=== PATIENT | female | born 1995 | race Two or more races ===

== ENCOUNTER 2023-07-07 12:23 | Emergency (ER) | payer MEDICAID, SELFPAY ==
--- NOTE | ~2023-07-07 | XR_ITS ---
EXAMINATION: XR KNEE, RIGHT CLINICAL INFORMATION: Pain, felt pop COMPARISON: None available. TECHNIQUE: 5 views of the right knee. FINDINGS: Mild bony density adjacent to the metaphysis of the distal femoral condyle medially. This appears rounded and may be dystrophic. Otherwise no suspicious bony finding. No effusion is seen. Joint spaces are well-preserved. No fracture or dislocation. XR/XR knee RT 3V IMPRESSION: No convincing evidence for an acute finding. Small bony density medially appears rounded and may be dystrophic calcification associated with previous soft tissue injury.
[2023-07-07 12:48] VITALS: BP 136/76; PULSE 84; RESP 18; TEMP 36.6; O2SAT 98; BMI 38.4
--- NOTE | 2023-07-07 12:48 | ED_ITS ---
HPI - General Adult General Chief complaint: Extremity Injury, Lower Stated complaint: r knee pain Related Data Allergies Allergy/AdvReac Type Severity Reaction Status Date / Time No Known Allergies Allergy Verified 07/07/23 12:47 Physical Exam ED Vital Signs: Vital Signs - 24 hr 07/07/23 12:48 Temperature 98 F Pulse Rate 84 Respiratory Rate 18 Blood Pressure 136/76 Pulse Oximetry 98 Oxygen Delivery Method Room Air BMI result Body Mass Index 38.4 Course Course Course Narrative: This is a rapid medical exam: Additional HPI, ROS, PE not included below will be deferred to primary provider. Patient is a 27-year-old female presenting to the ED with complaint of right knee pain for 2 days. Works at [employer], was emptying a san and when she stood up felt a pop and pain. Symptoms worsened the following day (yesterday) and states was unable to lift or bend knee. Arrives in a borrowed knee brace. Complains of patellar pain and well as posterior knee pain. Took 800mg ibuprofen last night with little relief, states woke repeatedly due to the pain. Plan: X-ray Discharge Plan Discharge Clinical Impression: Knee pain, right Qualifiers: Chronicity: acute Qualified Code(s): M25.561 - Pain in right knee Patient Disposition: Left W/O Completing Treatment
--- NOTE | 2023-07-07 15:27 | PC.NURSE ---
Pt approached triage asking for further information regarding d/c status x3. contact made to [facility] provider regarding plan of care. Pt increasingly verbally aggressive when told that I could not given out test results. You are no help what so ever . Pt educated that I would Reach out to her regarding her status as soon as I could Upon 3rd time approaching Triage: Pt educated to process regarding need for further workup and thorough lower extremity limb exam. Pt stated to me you are utterly no help and I dont' like your attitude. The marshall before you said I could be discharged from here. Screw you, I'm going to Leave now. I want my d/c paperwork . Pt educated that no d/c paperwork or note would be provided because she did not complete treatment. I'm going to tell Karen on you . Pt ambulated to exit. Note written in conjunction with [facility] provider. stock broker supervisor aware.
== END 2023-07-07 16:22 | disposition left against medical advice (07) ==
LOC: HO.ED 16:53
PROVIDERS: Emergency Provider Emergency Medicine
DX: M25.561 Pain in right knee (principal)
CPT/HCPCS: 73562; 99281; 99283

== ENCOUNTER 2023-07-07 17:21 | Emergency (ER) | payer MEDICAID, SELFPAY ==
[2023-07-07 18:07] VITALS: BP 112/68; PULSE 78; RESP 14; TEMP 36.9; O2SAT 98; BMI 36.4
--- NOTE | 2023-07-07 18:07 | ED_ITS ---
HPI - General Adult General Chief complaint: Extremity Injury, Lower Stated complaint: right knee pain Related Data Previous Rx's Medication Instructions Recorded ibuprofen 600 mg tablet 600 mg PO Q6H PRN pain #20 tabs 07/08/23 Allergies Allergy/AdvReac Type Severity Reaction Status Date / Time No Known Allergies Allergy Verified 07/07/23 12:47 [facility] Social History Social History Substance Use Type: Marijuana Physical Exam ED Vital Signs: BMI result Body Mass Index 36.4 Course Course Course Narrative: This is a rapid medical exam: Additional HPI, ROS, PE not included below will be deferred to primary provider. Patient is a 27-year-old female presenting to the emergency department with complaint of right knee pain, rates 9/10. States was working at her other job at [employer], was kneeling to empty a asn, and felt a pop when she stood up. Next day developed severe pain. Reports pain with weigth bearing, states is unable to flex knee. Arrives in a knee immobilizer borrowed from family member. Took ibuprofen with minimal relief. Patient checked in to the ED earlier, and had x-ray done in the waiting room which shows no acute findings. Unable to complete full ligament exam in triage due to patient's pain level. Discharge Plan Discharge Clinical Impression: Acute pain of right knee Patient Disposition: Elopement Prescriptions: No Action ibuprofen 600 mg tablet 600 mg PO Q6H PRN (Reason: pain) Qty: 20 0RF Discharge Date/Time: 07/07/23 22:24
== END 2023-07-07 22:24 | disposition left against medical advice (07) ==
PROVIDERS: Emergency Provider Emergency Medicine
DX: M25.561 Pain in right knee (principal)
CPT/HCPCS: 99281

== ENCOUNTER 2023-07-08 07:15 | Emergency (ER) | payer MEDICAID, SELFPAY ==
[2023-07-08 07:21] VITALS: BP 118/75; PULSE 90; RESP 18; TEMP 36.7; O2SAT 99; BMI 38.4
--- NOTE | 2023-07-08 08:58 | ED_ITS ---
HPI - General Adult General Chief complaint: Extremity Problem Stated complaint: R Knee Pain No Injury Time Seen by Provider: 07/08/23 08:53 Source: patient Mode of arrival: ambulatory Limitations: no limitations History of Present Illness HPI narrative: Patient is a 27-year-old female presenting to the emergency department with complaint of right knee pain. 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 States that 3 days ago she was emptying a [employer] at [employer] and with kneeling, when she stood she felt a popping sensation. States did not have pain immediately but pain developed the following day. Reports pain became so severe she is unable to bear weight on her right leg. States that she borrowed a knee brace from a cousin. Used 800 mg ibuprofen with little relief. Denies any numbness or tingling to leg. Denies prior injuries to affected knee. complaint: Right knee pain Onset (ago): day(s) Location: right and lower extremity Radiation: non-radiation Severity: severe Quality: aching Pain Consistency: constant Relieving factors: rest Exacerbating factors: movement Associated symptoms: denies other symptoms Treatments prior to arrival: NSAID Related Data Previous Rx's Medication Instructions Recorded ibuprofen 600 mg tablet 600 mg PO Q6H PRN pain #20 tabs 07/08/23 Allergies Allergy/AdvReac Type Severity Reaction Status Date / Time No Known Allergies Allergy Verified 07/07/23 12:47 Review of Systems Review of Systems: As per HPI. Yes all other systems are reviewed and are negative Constitutional: Constitutional: Reports as per HPI PMF Social History Social History Smoked in Last 30 Days: No Use of substances other than those prescribed or required for medical reasons: Yes Substance Use Type: Marijuana Advance Directives: No Advance Directives Information Provided: Yes Physical Exam ED Vital Signs: Vital Signs - 24 hr 07/08/23 07:21 07/08/23 09:40 Temperature 98.1 F Pulse Rate 90 84 Respiratory Rate 18 18 Blood Pressure 118/75 129/80 Pulse Oximetry 99 98 Oxygen Delivery Method Room Air Room Air BMI result Body Mass Index 38.4 Vital signs have been reviewed and appear to be correct. Blood pressure normal. Heart rate normal. Respiratory rate normal. Temperature normal. Oxygen saturation normal. Const General: cooperative, healthy appearing and no acute distress Orientation/consciousness: oriented to person, oriented to place, oriented to time and patient oriented x3 Limitations: no limitations HENMT Head: Yes normocephalic and Yes atraumatic Ears: external ears normal General nose exam: Normal external nose present Face and sinus: Yes face symmetric Mouth: oropharynx normal and moist mucous membranes Throat: Yes uvula midline Eyes Pupils: Equal, round and reactive pupils present Neck Neck: Yes normal visual inspection and Yes supple Resp Effort & Inspection: normal respiratory effort and able to speak in complete sentences Auscultation: clear to auscultation bilaterally Cardio Rate: regular rate Rhythm: regular rhythm Heart sounds: S1 normal heart sound present and S2 normal heart sound present GI Palpation (GI): Soft to palpation and nontender Auscultation: normoactive bowel sounds General: Yes no CVA tenderness Back/Spine/Pelvis Back: no CVA tenderness Skin General skin exam: elasticity normal and turgor normal Neuro General: oriented to person, oriented to place, oriented to time, patient oriented x3, moves all extremities, no focal motor deficits and CN's II-XI intact bilaterally Cranial nerves: Yes Equal, round and reactive pupils present Cognition (Neuro): normal cognition Extrem General: Yes full ROM, Yes normal exam except as noted, Yes no pedal edema and Yes no calf tenderness Right lower extremity: knee Details: normal to inspection, tenderness Location: of the popliteal fossa and of the medial joint line, normal ROM and knee ligament exam abnormal Details: valgus stress test normal Details: both pain and laxity noted; no ecchymosis and no crepitus and foot Details: vascular exam Details: dorsalis pedis pulse present, posterior tibial pulse present and normal capillary refill Psych Mental Status: mental status grossly normal Affect: normal affect Thought process: Normal thought process present Medical Decision Making Medical Decision Making MDM Narrative: Patient is a 27-year-old female presenting to the emergency department with complaint of right knee pain. On exam patient is awake, A+Ox3, VS WNL, afebrile, normal neurological exam without focal deficits, no swelling or ecchymosis noted to right knee, tenderness noted to medial joint line and popliteal fossa, laxity and pain noted on valgus stress test, neurovascularly intact distally. Given reported symptoms and physical exam findings, initial differential includes strain, sprain, fracture, ligamentous injury. X-ray obtained while patient in waiting room yesterday notable for no acute findings. My interpretation is in agreement with the radiologist's interpretation. Will discharge patient home in in knee immobilizer with crutches and crutch teaching and advised to not bear weight on right leg until evaluated by orthopedics. Instructed patient to keep leg elevated while at rest, apply ice intermittently throughout the day, medicate with Tylenol and ibuprofen. Will refer patient to Orthopedics for further evaluation and treatment. Return precautions discussed at bedside. Patient verbalized understanding of and agreement with plan. Differential Diagnosis Differential Diagnoses: The differential diagnosis associated with the presentation includes As per MDM. Independent Interpretation I performed an independent interpretation of an: Plain X-Ray Interpretation: No acute fracture Radiology Impression Discussion of test interpretation with radiology: I have reviewed the radiologist's reading. Radiologist Impression: XR/XR knee RT 3V IMPRESSION: No convincing evidence for an acute finding. Small bony density medially appears rounded and may be dystrophic calcification associated with previous soft tissue injury. External Record Review External record reviewed: Inpatient record, Office record and Outpatient record Prescription Management I considered prescription management with: Pain Medication Discharge Plan Discharge Clinical Impression: Acute pain of right knee Injury of knee, ligament Qualifiers: Encounter type: initial encounter Laterality: right Qualified Code(s): S89.91XA - Unspecified injury of right lower leg, initial encounter Patient Disposition: Home, Self-Care Instructions: Crutch Instructions (ED), Knee Pain (ED), R.I.C.E. Treatment (ED), Knee Immobilizer (ED) Additional Instructions: You have been evaluated in the emergency department today for knee pain. Your x-ray did not find evidence of medical conditions requiring emergent intervention at this time, however there is concern for a ligament injury. We have provided a knee immobilizer and crutches for you to use into the follow-up with orthopedics. Do not bear weight on your right leg until evaluated by orthopedics. Please rest, ice, and elevate your leg. We recommend you take 600mg ibuprofen every 6 hours or 650mg Tylenol every 6 hours as needed for pain. If needed you can alternate these medications as they take 1 medication every 3 hours. For instance at noon take ibuprofen, then at 3:00 p.m. take Tylenol, then at 6:00 p.m. take ibuprofen. You are being referred to Orthopedics for further evaluation and management, please call their office to schedule an appointment as soon as possible. Please schedule an appointment for follow-up with your primary care provider this week. Return to the emergency department if you experience worsening pain, numbness, tingling, change of color in your leg, or any other concerning symptoms. Prescriptions: New ibuprofen 600 mg tablet 600 mg PO Q6H PRN (Reason: pain) Qty: 20 0RF Referrals: [facility] [Provider Group] Stand Alone Forms: Work/School Release Interventions: ED Discharge Assessment Last Done: 07/08/23 09:42
[2023-07-08 09:40] VITALS: BP 129/80; PULSE 84; RESP 18; O2SAT 98
== END 2023-07-08 09:45 | disposition home or self-care (01) ==
PROVIDERS: Emergency Provider Emergency Medicine Emergency Medical Services
DX: S89.91XA Unspecified injury of right lower leg, initial encounter (principal); M25.561 Pain in right knee; X58.XXXA Exposure to other specified factors, initial encounter; Y93.9 Activity, unspecified; Y92.9 Unspecified place or not applicable; Y99.0 Civilian activity done for income or pay
CPT/HCPCS: 99283; 99284

== ENCOUNTER 2024-02-22 02:53 | Inpatient (IN) | payer OTHER, SELFPAY ==
--- NOTE | ~2024-02-22 | CT_ITS ---
EXAMINATION: CT ABDOMEN AND PELVIS WITH CONTRAST CLINICAL INFORMATION: Left lower quadrant and epigastric abdominal pain COMPARISON: None available. TECHNIQUE: Multidetector volumetric images were obtained from the superior aspect of the liver through the pubic symphysis following administration 85 mL of Omnipaque 350 intravenous contrast. Sagittal and coronal reformatted images were obtained on the technologist's workstation. Oral contrast: No This CT examination was performed using dose optimization techniques as appropriate, variously including the following: *Automated exposure control *Adjustment of mA and/or kV according to patient size (this includes techniques or standardized protocols for targeted exams where dose is matched to indication/reason for exam; i.e. extremities or head) *Use of iterative reconstruction technique DLP: 824 mGy-cm FINDINGS: LUNG BASES: The visualized lung bases are unremarkable. LIVER, GALLBLADDER, AND BILIARY TREE: The liver is normal in size, shape, and attenuation. No focal hepatic lesion or biliary ductal dilatation is present. There are multiple calculi within the gallbladder, measuring up to 16 mm. A smaller calculus is evident within the gallbladder neck. There is mild infiltration about the gallbladder neck. PANCREAS: Unremarkable. SPLEEN: Unremarkable. ADRENAL GLANDS: Unremarkable. KIDNEYS AND URETERS: The kidneys are normal in size, shape, and attenuation. No hydronephrosis, hydroureter, or calculi seen. No perinephric stranding. BLADDER: Unremarkable. GASTROINTESTINAL TRACT: The small and large bowel are unremarkable. The appendix is unremarkable. ABDOMINAL WALL: No significant hernia is appreciated. LYMPH NODES: Normal. VASCULAR: Unremarkable. PELVIC VISCERA: Unremarkable. OSSEOUS STRUCTURES: Unremarkable. CT/CT abdomen pelvis w IV con IMPRESSION: 1. Cholelithiasis with infiltration about the gallbladder neck, indicative of early or chronic cholecystitis. Right upper quadrant ultrasound might be of benefit as clinically warranted. 2. No acute findings in the left lower quadrant to account for left lower quadrant pain. Fleischner guidelines were followed.
--- NOTE | ~2024-02-22 | US_ITS ---
EXAMINATION: US ABDOMEN LIMITED CLINICAL INFORMATION: Prior abnormal imaging.. COMPARISON: CT abdomen/pelvis 02/22/2024 TECHNIQUE: Real-time imaging of the right upper quadrant abdominal viscera. FINDINGS: GALLBLADDER: The gallbladder is distended with stones. Mild gallbladder wall thickening and edema. Positive sonographic Graham's sign. COMMON BILE DUCT: Normal in caliber measuring 0.4 cm in diameter. US/US abdomen limited IMPRESSION: Cholelithiasis with gallbladder wall thickening. Positive sonographic Graham's sign. Findings may represent acute cholecystitis.
[2024-02-22 03:04] VITALS: BP 119/73; PULSE 74; RESP 16; TEMP 36.8; O2SAT 100; BMI 43.1
[2024-02-22 03:20] LABS: MANUAL DIFF FLAG NO
[2024-02-22 03:21] LABS: Basophils Percent Auto 0.4 % (0-2); Eosinophils Absolute Auto 0.4 X10*3/uL (0.0-0.4); Eosinophils Percent Auto 4.4 % (0-4); Imm Gran Abs Auto 0.02 X10*3/uL (0.00-0.03); Imm Gran Pct Auto 0.2 % (0.0-0.4); Lymphocytes Absolute Auto 3.8 X10*3/uL (1.2-4.9); Lymphocytes Percent Auto 46.6 % (20-40); Mean Corpuscular HGB Conc 32.5 g/dl (31.0-35.0); Mean Corpuscular Hemoglobin 27.7 pg (27.0-33.0); Mean Corpuscular Volume 85.3 fL (80.0-98.0); Monocytes Absolute Auto 0.6 X10*3/uL (0.1-1.2); Neutrophils Absolute Auto 3.3 x10*3/uL (2.0-8.3); Neutrophils Percent Auto 41.4 % (45-73); Platelet Count 242 X10*3/uL (160-400); Red Blood Count 4.69 X10*6/uL (4.20-5.50); Red Cell Distribution Width 13.5 % (11.0-16.0)
[2024-02-22 03:34] LABS: Anion Gap 15 (12-20); Blood Urea Nitrogen 13 mg/dL (9-16); Carbon Dioxide 24 mmol/L (22-29); Chloride 106 mmol/L (96-108); Creatinine Clr Calc Pharmacy 123.8; Estimated Glomerular Filt Rate > 60; Glucose Random 114 mg/dL (60-115); Potassium 4.2 mmol/L (3.3-5.1); Sodium 141 mmol/L (135-145)
[2024-02-22 07:26] VITALS: BP 105/74; PULSE 86; RESP 16; O2SAT 98
--- NOTE | 2024-02-22 07:52 | ED.ABDPAIN ---
HPI - Abdominal Pain General Chief Complaint: Abdominal Pain Stated Complaint: stomach/back pain Time Seen by Provider: 02/22/24 07:22 Source: patient Mode of arrival: ambulatory Limitations: no limitations History of Present Illness HPI narrative: 28 yo female with PMH significant for preeclampsia in 2019, who presents to the ED via walk-in for evaluation of intermittent and worsening abdominal pain x4 days radiating to back. She pointed to the epigastric region and middle of her back when locating the pain. She describes 2 episodes of clear vomiting at home and 1 episode in the ED of which she describes as pink in color due to taking Pepto Bismol this morning. She endorses associated frequency in bowel movements, however denies loose stool. She states she has never experienced any similar episodes in the past. She reports she last took 500 mg of Tylenol at 2 AM, of which provided no symptom relief. She states sitting up worsens pain and standing or laying flat causes less pain. She denies fevers, chills, headaches, chest pain, SOB, and changes or pain with urination. She denies tobacco use, but endorses marijuana use. MD elicited complaint: abdominal pain Pertinent past history: other (Preeclampsia in 2019) Onset (ago): day(s) Pain Consistency: intermittent Location: epigastric and LLQ Severity: severe Pain scale (0-10): 10 Quality: other ( Clenching ) Radiation: back Migration to: no migration Exacerbating factors: other (Sitting) Relieving factors: other (Standing or laying flat) Associated symptoms: nausea and vomiting Treatments prior to arrival: other (Tylenol, Pepto Bismol ) Related Data Hx Last Menstrual Period: Unknown specific dates, states around last week Previous Rx's ?Medication ?Instructions ?Recorded ibuprofen 600 mg tablet 600 mg PO Q6H PRN pain #20 tabs 07/08/23 Allergies Allergy/AdvReac Type Severity Reaction Status Date / Time No Known Allergies Allergy Verified 02/22/24 03:05 Review of Systems Review of Systems Yes all other systems are reviewed and are negative [facility] Past Medical History Attestation statement: The following information was validated with the patient. [facility] Narrative: Preeclampsia during in 2019 in 2019 Hx Last Menstrual Period: Unknown specific dates, states around last week Social History Social History Smoked in Last 30 Days: No Use of substances other than those prescribed or required for medical reasons: Yes Substance Use Type: Marijuana Advance Directives: No Advance Directives Information Provided: No Do you have a plan to hurt others: No Plan Physical Exam ED Vital Signs: Vital Signs - 24 hr 02/22/24 03:04 02/22/24 07:26 02/22/24 12:00 Temperature 98.2 F Pulse Rate 74 86 82 Respiratory Rate 16 16 18 Blood Pressure 119/73 105/74 107/58 L Pulse Oximetry 100 98 98 Oxygen Delivery Method Room Air Room Air Room Air BMI result Body Mass Index 43.1 Appearance: Alert. Oriented X3. Appears in pain, lying in ED stretcher. Head: normocephalic, atraumatic. Eyes: Pupils equal, round and reactive to light. ENT: Pharynx normal. Neck: Normal inspection. Neck supple. CVS: Normal heart rate and rhythm. Pulses normal. Respiratory: No respiratory distress. Abdomen: Soft. Tender in epigastric region, RUQ and LLQ. Hypoactive BS x4. Skin: Skin warm and dry. Normal skin color. Normal skin turgor. No rashes. Extremities: No lower extremity edema. No joint swelling. Neuro/psych: Oriented X 3. Normal speech and cognition. Course Reevaluation(s) Reevaluation #1: patient re-evaluated at the bedside. Patient continues to report pain although overall improved. She feels like morphine is starting to wear off. She has tenderness in her right upper quadrant on examination with some guarding. Right upper quadrant ultrasound is pending, CT scan with cholelithiasis and abnormal gallbladder. IV morphine, 2nd dose ordered now. Will reassess pain Time: 11:18 Reevaluation #2: Patient re-evaluated per nursing request. Patient is tearful and reports extreme pain. No relief with 2nd dose of morphine. Her abdomen remained soft. She continues to have right upper quadrant pain with guarding and rebound now present. Ultrasound returned with possible acute cholecystitis. IV Zosyn has been ordered. Dr. Pastor has been consulted for admission. Will give 1 dose of IV Dilaudid and reassess her pain. Time: 11:55 Reevaluation #3: pain improved after IV dilaudid. Time: 13:17 Medical Decision Making Medical Decision Making MDM Narrative: 28 yo female with PMH significant for preeclampsia during in 2019 who presented to the ED for evaluation of intermittent and worsening abdominal pain x4 days radiating to back. On exam, patient had significant tenderness to palpation of the epigastric region, RUQ, and LLQ and hypoactive BS. No evidence of leukocytosis. LFTs and lipase ordered today, which came back within normal limits. CT of abdomen and pelvis w/ IV contrast revealed cholelithiasis with infiltration about the gallbladder neck. RUQ ultrasound ordered and revealed cholelithiasis with gallbladder wall thickening, positive sonographic Graham's sign. Findings c/w acute cholecystitis Dr. Pastor consulted for admission. She required multiple doses of IV narcotics for pain control. He came to evaluate the patient and will admit, plan for OR tomorrow. Differential Diagnosis Differential Diagnoses: The differential diagnosis associated with the presentation includes 1. Diverticulitis 2. Pancreatitis 3. GERD 4. Gastroenteritis 5. Cholecystitis Admission/Observation Consideration of admission/observation: Escalation of care including admission/observation considered Consult Healthcare Provider Management of the patient was discussed with: Vice President Marketing & Development Dr. Pastor agrees to admit Lab Data MDM Lab Attestation statement: I reviewed the patient's lab results. No leukocytosis, normal LFTs and lipase, no anemia 02/22/24 03:11 02/22/24 03:11 Labs: Lab Results 02/22/24 02/22/24 Range/Units 03:11 09:34 WBC 8.0 (4.8-10.8) X10*3/uL RBC 4.69 (4.20-5.50) X10*6/uL Hgb 13.0 (12.0-16.0) g/dl Hct 40.0 (37.0-47.0) % MCV 85.3 (80.0-98.0) fL MCH 27.7 (27.0-33.0) pg MCHC 32.5 (31.0-35.0) g/dl RDW 13.5 (11.0-16.0) % Plt Count 242 (160-400) X10*3/uL MPV 12.0 (9.4-12.3) fL Immature Gran % (Auto) 0.2 (0.0-0.4) % Neut % (Auto) 41.4 L (45-73) % Lymph % (Auto) 46.6 H (20-40) % [place] % (Auto) 7.0 (2-11) % Eos % (Auto) 4.4 H (0-4) % Baso % (Auto) 0.4 (0-2) % Lymph # (Auto) 3.8 (1.2-4.9) X10*3/uL [place] # (Auto) 0.6 (0.1-1.2) X10*3/uL Eos # (Auto) 0.4 (0.0-0.4) X10*3/uL Baso # (Auto) 0.0 (0.0-0.2) X10*3/uL Abs Immat Gran (auto) 0.02 (0.00-0.03) X10*3/uL Absolute Neuts (auto) 3.3 (2.0-8.3) x10*3/uL Absolute Nucleated RBC 0.000 (0.0-0.012) X10*3/uL Nucleated RBC % (auto) 0.0 (0.0-0.2) /100WBC Sodium 141 (135-145) mmol/L Potassium 4.2 (3.3-5.1) mmol/L Chloride 106 (96-108) mmol/L Carbon Dioxide 24 (22-29) mmol/L Anion Gap 15 (12-20) BUN 13 (9-16) mg/dL Creatinine 0.69 (0.5-1.4) mg/dL Estim Creat Clear Calc 123.8 Estimated GFR > 60 Random Glucose 114 (60-115) mg/dL Calcium 10.0 (8.4-10.2) mg/dL Total Bilirubin 0.3 (0.0-1.0) mg/dL Direct Bilirubin 0.1 (0.0-0.5) mg/dL AST 15 (5-31) U/L ALT 15 (0-31) U/L Alkaline Phosphatase 74 (39-117) U/L Total Protein 7.7 (6.5-8.0) g/dL Albumin 3.9 (3.5-5.0) g/dL Lipase 14 (8-78) U/L Urine Color Yellow Urine Appearance Clear Urine pH 8.5 (5.0-9.0) Ur Specific [place] 1.010 (1.005-1.025) Urine Protein Negative (Neg-Trace) mg/dL Urine Glucose (UA) Negative (Negative) mg/dL Urine Ketones Negative (Negative) mg/dL Urine Blood Negative (Negative) Urine Nitrite Negative (Negative) Ur Leukocyte Esterase Negative (Negative) Urine Test NEGATIVE (NEGATIVE) Independent Interpretation I performed an independent interpretation of an: Ultrasound and CT Scan Interpretation: CT with gallstones and enlarged GB, no air fluid levels in the small or large bowel US w/ gallstones w/ wall thickening Radiology Impression Discussion of test interpretation with radiology: I have reviewed the radiologist's reading. Radiologist Impression: EXAMINATION: CT ABDOMEN AND PELVIS WITH CONTRAST CLINICAL INFORMATION: Left lower quadrant and epigastric abdominal pain COMPARISON: None available. TECHNIQUE: Multidetector volumetric images were obtained from the superior aspect of the liver through the pubic symphysis following administration 85 mL of Omnipaque 350 intravenous contrast. Sagittal and coronal reformatted images were obtained on the technologist's workstation. Oral contrast: No This CT examination was performed using dose optimization techniques as appropriate, variously including the following: *Automated exposure control *Adjustment of mA and/or kV according to patient size (this includes techniques or standardized protocols for targeted exams where dose is matched to indication/reason for exam; i.e. extremities or head) *Use of iterative reconstruction technique DLP: 824 mGy-cm FINDINGS: LUNG BASES: The visualized lung bases are unremarkable. LIVER, GALLBLADDER, AND BILIARY TREE: The liver is normal in size, shape, and attenuation. No focal hepatic lesion or biliary ductal dilatation is present. There are multiple calculi within the gallbladder, measuring up to 16 mm. A smaller calculus is evident within the gallbladder neck. There is mild infiltration about the gallbladder neck. PANCREAS: Unremarkable. SPLEEN: Unremarkable. ADRENAL GLANDS: Unremarkable. KIDNEYS AND URETERS: The kidneys are normal in size, shape, and attenuation. No hydronephrosis, hydroureter, or calculi seen. No perinephric stranding. BLADDER: Unremarkable. GASTROINTESTINAL TRACT: The small and large bowel are unremarkable. The appendix is unremarkable. ABDOMINAL WALL: No significant hernia is appreciated. LYMPH NODES: Normal. VASCULAR: Unremarkable. PELVIC VISCERA: Unremarkable. OSSEOUS STRUCTURES: Unremarkable. CT/CT abdomen pelvis w IV con IMPRESSION: 1. Cholelithiasis with infiltration about the gallbladder neck, indicative of early or chronic cholecystitis. Right upper quadrant ultrasound might be of benefit as clinically warranted. 2. No acute findings in the left lower quadrant to account for left lower quadrant pain EXAMINATION: US ABDOMEN LIMITED CLINICAL INFORMATION: Prior abnormal imaging.. COMPARISON: CT abdomen/pelvis 02/22/2024 TECHNIQUE: Real-time imaging of the right upper quadrant abdominal viscera. FINDINGS: GALLBLADDER: The gallbladder is distended with stones. Mild gallbladder wall thickening and edema. Positive sonographic Graham's sign. COMMON BILE DUCT: Normal in caliber measuring 0.4 cm in diameter. US/US abdomen limited IMPRESSION: Cholelithiasis with gallbladder wall thickening. Positive sonographic Graham's sign. Findings may represent acute cholecystitis. External Record Review External record reviewed: Outpatient record, Prior outpatient labs and Prior outpatient radiology Prescription Management I considered prescription management with: Pain Medication and Antibiotic Medications Administered Discontinued Medications Generic Name Dose Route Start Last Admin Trade Name Freq PRN Reason Stop Dose Admin Hydromorphone HCl 0.5 mg 02/22/24 11:54 02/22/24 12:03 Hydromorphone Hcl 0.5 Mg/0.5 Ml Syringe IVPUSH 02/22/24 11:55 0.5 mg ONCE ONE Administration Protocol Sodium Chloride 1,000 mls @ 999 mls/hr 02/22/24 09:00 02/22/24 10:32 Ns IVCONT 02/22/24 10:00 Infused .Q1H1M JHONNY Infusion Piperacillin Sod/Tazobactam 50 mls @ 100 mls/hr 02/22/24 11:51 02/22/24 13:37 Sod 3.375 gm/ Sodium Chloride IV 02/22/24 12:20 Infused ONCE ONE Infusion Sodium Chloride 1,000 mls @ 999 mls/hr 02/22/24 12:00 02/22/24 13:47 Ns IV 02/22/24 13:00 999 mls/hr .Q1H1M JHONNY Administration Iohexol 100 ml 02/22/24 10:18 02/22/24 10:18 Iohexol 350 Mg/Ml 100 Ml Infus..Btl IV 02/22/24 10:19 85 ml ONCE ONE Administration Morphine Sulfate 4 mg 02/22/24 07:44 02/22/24 08:13 Morphine Sulfate 4 Mg/Ml Cartridge IVPUSH 02/22/24 07:45 4 mg ONCE ONE Administration Protocol Morphine Sulfate 4 mg 02/22/24 11:18 02/22/24 11:34 Morphine Sulfate 4 Mg/Ml Cartridge IVPUSH 02/22/24 11:19 4 mg ONCE ONE Administration Protocol Ondansetron HCl 4 mg 02/22/24 07:44 02/22/24 08:13 Ondansetron Hcl 4 Mg/2 Ml Vial IVPUSH 02/22/24 07:45 4 mg ONCE ONE Administration Sodium Chloride 3 ml 02/22/24 08:00 02/22/24 08:13 0.9 % Sodium Chloride Flush 3 Ml Syringe IVFLUSH 3 ml QSHIFT JHONNY Administration Critical Care Time Critical Care Time Critical Care Time: Yes Total Critical Care Time: 61 Attestation: I have personally provided critical care time exclusive of time spent on separately billable procedures. Time includes review of lab data, radiology results, discussion with consultants, and monitoring for potential decompensation. Intervention performed as documented. Discharge Plan Discharge Clinical Impression: Acute cholecystitis Patient Disposition: Admitted As Inpatient Print Language: Indonesian
[2024-02-22] MEDS: ondansetron HCL 4 MG/2 ML VIAL IVPUSH ×2 (08:13→18:31)
[2024-02-22] MEDS: Morphine Sulfate 4 MG/ML CARTRIDGE IVPUSH ×2 (08:13→11:34)
[2024-02-22] MEDS: 0.9 % Sodium Chloride Flush 3 ML SYRINGE IVFLUSH ×2 (08:13→23:59)
[2024-02-22 08:16] LABS: Alanine Aminotransferase 15 U/L (0-31); Albumin Level 3.9 g/dL (3.5-5.0); Alkaline Phosphatase 74 U/L (39-117); Aspartate Amino Transferase 15 U/L (5-31); Bilirubin Direct 0.1 mg/dL (0.0-0.5); Bilirubin Total 0.3 mg/dL (0.0-1.0); Lipase 14 U/L (8-78); Total Protein 7.7 g/dL (6.5-8.0)
--- NOTE | 2024-02-22 08:23 | PC.NURSE ---
pt a&o x4, pleasant, calm, and cooperative. visitor at bedside. pt reporting central abdominal pain with associated nausea and vomiting x3 days. pt sts pain worsens with eating. 20G IV placed to LAC, pt medicated per mar. pt awaiting UA and CT scan. plan of care ongoing.
[2024-02-22] MEDS: 0.9 % Sodium Chloride 1,000 ML 999 ML IVCONT (09:29)
[2024-02-22 09:49] LABS: Appearance Urine Clear; Color Urine Yellow; Glucose Urine UA Negative (Negative); Leukocyte Esterase Urine Negative (Negative); Nitrite Urine Negative (Negative); PH 8.5 (5.0-9.0); Urine Blood Negative (Negative); Urine Ketones Negative (Negative); Urine Protein Negative (Neg-Trace)
[2024-02-22 09:54] LABS: UPreg QC Valid YES; Urine Pregnancy NEGATIVE (NEGATIVE)
[2024-02-22] MEDS: iohexoL 350 MG/ML 100 ML INFUS..BTL IV (10:18)
--- NOTE | 2024-02-22 11:49 | PC.NURSE ---
pt medicated per mar with more pain medication. immediately after med administration pt sts pain is significantly worse and is crying. pt did not have this reaction when the medication was administered the first time. pt only stated some slight dizziness/sleepiness from first administration with some pain relief. PEMA Simpson aware.
[2024-02-22 12:00] VITALS: BP 107/58; PULSE 82; RESP 18; O2SAT 98
[2024-02-22] MEDS: HYDROmorphone HCl 0.5 MG/0.5 ML SYRINGE IVPUSH ×2 (12:03→21:00)
[2024-02-22] MEDS: Piperacillin Sodium/Tazobactam 3.375 GM in 0.9 % Sodium Chloride 50 ML IV ×3 (12:11→23:57)
[2024-02-22] MEDS: 0.9 % Sodium Chloride 1,000 ML 999 ML IV (13:47)
--- NOTE | 2024-02-22 14:07 | P.HPGS_ITS ---
History of Present Illness History of Present Illness Date of Service: 02/22/24 <Angie Calderón PA-C - Last Filed: 02/22/24 14:39> 02/22/24 <Nato Pastor MD - Last Filed: 02/22/24 17:08> Chief complaint: Acute cholesystitis <Angie Caldeórn PA-C - Last Filed: 02/22/24 14:39> Narrative: Johny Lyons is a 28 year old female with PMH significant for preeclampsia in 2019 who presented to the ED with complaints of abdominal pain. She reports the pain is mostly in the epigastric region and started 4 days ago. It is constant in nature and wraps around to her right upper back. It is associated with nausea and vomiting. She denies similar episodes of pain, fever, chills, sick contacts, diarrhea. Work up in the ED included CBC, BMP, LFTs which were WNL. CT scan abd/pelvis and ABD US were performed which showed gallstones, distended gallbladder with mild gallbladder wall thickening and edema and positive sonographic Graham's sign. <Angie Calderón PA-C - Last Filed: 02/22/24 14:39> Review of Systems Constitutional: Constitutional: Denies chills and Denies fever(s) <Angie Calderón PA-C - Last Filed: 02/22/24 14:39> ENT: Denies dizziness <Angie Calderón PA-C - Last Filed: 02/22/24 14:39> Cardiovascular: Cardiovascular: Denies chest pain and Denies dyspnea <Angie Calderón PA-C - Last Filed: 02/22/24 14:39> Respiratory: Respiratory: Denies cough and Denies dyspnea <Angie Calderón PA-C - Last Filed: 02/22/24 14:39> Gastrointestinal: Gastrointestinal: Reports as per HPI <CUCO Sharma Last Filed: 02/22/24 14:39> Genitourinary: Genitourinary: Denies hematuria and Denies dysuria <CUCO Sharma Last Filed: 02/22/24 14:39> Integumentary/Breasts: Skin/Breast: Denies rash and Denies jaundice <Angie Calderón PA-C Last Filed: 02/22/24 14:39> Neurologic: Denies dizziness <Angie Calderón PA-C Last Filed: 02/22/24 14:39> [facility] Social History Social History: Social History Smoked in Last 30 Days: No Use of substances other than those prescribed or required for medical reasons: Yes Substance Use Type: Marijuana Advance Directives: No Advance Directives Information Provided: No Do you have a plan to hurt others: No Plan <Angie Calderón PA-C Last Filed: 02/22/24 14:39> Meds Allergies/Adverse reactions: Allergies Allergy/AdvReac Type Severity Reaction Status Date / Time No Known Allergies Allergy Verified 02/22/24 03:05 <CUCO Sharma Last Filed: 02/22/24 14:39> Home medications: Home Medications ?Medication ?Instructions ?Recorded ?Confirmed ?Last Taken ?Type acetaminophen 325 mg tablet 325 mg PO QID PRN pain or fever 02/22/24 02/22/24 Unknown History (Tylenol) <CUCO Sharma Last Filed: 02/22/24 14:39> Physical Exam Vital Signs: Vital Signs: Last Vital Signs Temp 98.2 F 02/22/24 03:04 Pulse 82 02/22/24 12:00 Resp 18 02/22/24 12:00 BP 107/58 L 02/22/24 12:00 Pulse Ox 98 02/22/24 12:00 O2 Del Method Room Air 02/22/24 12:00 BMI result Body Mass Index 43.1 <CUCO Sharma Last Filed: 02/22/24 14:39> Const: General: comfortable, no acute distress and alert <CUCO Sharma Last Filed: 02/22/24 14:39> Nutritional Appearance: obese <CUCO Sharma Filed: 02/22/24 14:39> Orientation/consciousness: patient oriented x3 <CUCO Sharma Last Filed: 02/22/24 14:39> Eyes: Sclerae: sclerae normal <CUCO Sharma Last Filed: 02/22/24 14:39> Resp: Effort & Inspection: normal respiratory effort <CUCO Sharma Filed: 02/22/24 14:39> Cardio: Rate: regular rate <CUCO Sharma Last Filed: 02/22/24 14:39> GI: Inspection: No distended and Yes scar (pfannensteil) <Angie Calderón CUCO Gonsalez Last Filed: 02/22/24 14:39> Palpation (GI): Soft to palpation, Tenderness to palpation present (GI) in the RUQ (marked) and Graham's sign positive and no guarding <Angie Calderón CUCO Gonsalez Last Filed: 02/22/24 14:39> Percussion: Yes normal to percussion <Angie Calderón CUCO Gonsalez Last Filed: 02/22/24 14:39> Skin: General skin exam: no rashes or lesions noted and no jaundice <CUCO Sharma Last Filed: 02/22/24 14:39> Neuro: General: patient oriented x3 and moves all extremities <Angie Calderón CUCO Gonsalez Last Filed: 02/22/24 14:39> Results Results Labs: Short CBC 02/22/24 Range/Units 03:11 WBC 8.0 (4.8-10.8) X10*3/uL Hgb 13.0 (12.0-16.0) g/dl Hct 40.0 (37.0-47.0) % Plt Count 242 (160-400) X10*3/uL BMP 02/22/24 03:11 Sodium 141 Potassium 4.2 Chloride 106 Carbon Dioxide 24 BUN 13 Creatinine 0.69 Calcium 10.0 Liver Function 02/22/24 Range/Units 03:11 Total Bilirubin 0.3 (0.0-1.0) mg/dL Direct Bilirubin 0.1 (0.0-0.5) mg/dL AST 15 (5-31) U/L ALT 15 (0-31) U/L Alkaline Phosphatase 74 (39-117) U/L Albumin 3.9 (3.5-5.0) g/dL Urine 05/08/24 Range/Units 09:34 Urine Color Yellow Urine Appearance Clear Urine pH 8.5 (5.0-9.0) Ur Specific [place] 1.010 (1.005-1.025) Urine Protein Negative (Neg-Trace) mg/dL Urine Glucose (UA) Negative (Negative) mg/dL Urine Test NEGATIVE (NEGATIVE) <Angie Calderón PA-C - Last Filed: 02/22/24 14:39> Abdomen CT scan report/results: report reviewed and image reviewed <CUCO Sharma Last Filed: 02/22/24 14:39> Assessment and Plan (1) Acute cholecystitis: Status: Acute <CUCO Sharma Last Filed: 02/22/24 14:39> The patient has right upper quadrant pain and tenderness Imaging studies including ultrasound and CT scan show gallbladder wall thickening suggestive of acute cholecystitis LFTs are normal I explained the technique of laparoscopic cholecystectomy and possible open cholecystectomy I reviewed the risks including but not limited to bleeding, infections, injury to other organs, bile leak, retained stones, inherent risks of anesthesia, as well as the benefits and alternatives. I explained to her I anticipate significant degree of difficulty with the procedure in view of inflammation and pt's body habitus She wants to proceed Patient placed on the OR schedule for tomorrow Patient was seen and examined independently <Nato Pastor MD - Last Filed: 02/22/24 17:08> 28 year old female with who presented to the ED with 4 day history of epigastric abdominal pain, nausea/vomiting with RUQ tenderness/positive graham sign and imaging suggestive of acute cholecystitis. She has been admitted to the surgical service for further treatment of the acute cholecystitis. Treatment options were discussed including observation and abx and proceeding with cholecystectomy. Risks, benefits, alternatives of laparoscopic possible open cholecystectomy were reviewed with the patient including but not limited to bleeding, infection, numbness, pain, poor healing, injury to the liver, bowel or bile ducts, leak, retained stones and the patient wishes to proceed.? Arrangements will be made for this tomorrow.?All questions were answered. <Angie Calderón PA-C - Last Filed: 02/22/24 14:39> Quality Stroke Does the patient have a stroke diagnosis?: No <Angie Calderón PA-C - Last Filed: 02/22/24 14:39> VTE Prior VTE?: No <Angie Calderón PA-C - Last Filed: 02/22/24 14:39> VTE Risk Level:: Surgical - moderate <Angie Calderón PA-C - Last Filed: 02/22/24 14:39> VTE Device Contraindication: N/A - Device Ordered <Angie Calderón PA-C - Last Filed: 02/22/24 14:39> VTE Drug Contraindication: Treatment Not Indicated <Angie Calderón PA-C - Last Filed: 02/22/24 14:39> Procedures Date of Service Date of Service: 02/22/24 <Angie Calderón PA-C - Last Filed: 02/22/24 14:39> 02/22/24 <Nato Pastor MD - Last Filed: 02/22/24 17:08>
--- NOTE | 2024-02-22 14:32 | PHA.MEDREC ---
Pharmacy Consult ? Medication Reconciliation Pharmacy has completed the medication reconciliation, pt reported no medication use, only a PRN tylenol over the counter.
[2024-02-22 16:50] VITALS: BP 114/63; PULSE 80; RESP 16; O2SAT 98
[2024-02-22] MEDS: HYDROmorphone HCl 1 MG/ML SYRINGE 0.5 MG IVPUSH (17:13)
--- NOTE | 2024-02-22 19:17 | PC.NURSE ---
pt medicated per mar with prn nausea and pain medication. pt sts medications effective. pt on a clear liquid diet. pt son and friend at bedside. pt resting quietly on stretcher, awaiting bed assignment. call brennan within reach. plan of care ongoing.
[2024-02-22 20:05] VITALS: BP 107/58; PULSE 82; RESP 20; TEMP 36.7; O2SAT 98
[2024-02-22] MEDS: Lactated Ringers 1,000 ML 80 ML IVCONT (20:29)
[2024-02-22 21:28] VITALS: BP 125/63; PULSE 70; RESP 18; TEMP 36.6; O2SAT 95
[2024-02-22] MEDS: LORazepam 0.5 MG TABLET PO (22:07)
[2024-02-23] VITALS (14 sets, daily range): BP systolic 99–132; BP diastolic 51–80; PULSE 60–100; RESP 16–20; TEMP 36–36.9; O2SAT 96–100
[2024-02-23] MEDS: oxyCODONE HCl Immed Release 5 MG TABLET PO ×3 (00:16→19:35)
[2024-02-23] MEDS: Piperacillin Sodium/Tazobactam 3.375 GM in 0.9 % Sodium Chloride 50 ML IV ×3 (05:39→18:03)
[2024-02-23 07:52] LABS: Alanine Aminotransferase 18 U/L (0-31); Albumin Level 3.5 g/dL (3.5-5.0); Alkaline Phosphatase 63 U/L (39-117); Aspartate Amino Transferase 16 U/L (5-31); Bilirubin Direct 0.3 mg/dL (0.0-0.5); Total Protein 6.9 g/dL (6.5-8.0)
--- NOTE | 2024-02-23 07:54 | PM.PNGS ---
Subjective Subjective Date of Service: 02/23/24 <Angie Calderón PA-C - Last Filed: 02/23/24 07:56> 02/24/24 <Nato Pastor MD - Last Filed: 02/24/24 08:44> Interval history: Nervous about procedure. Reports continued RUQ pain. <CUCO Sharma Last Filed: 02/23/24 07:56> Physical Exam Vital Signs: Vital Signs: Last Vital Signs Temp 97.5 F 02/23/24 07:34 Pulse 76 02/23/24 07:34 Resp 18 02/23/24 07:34 BP 119/63 02/23/24 07:34 Pulse Ox 97 02/23/24 07:34 O2 Del Method Room Air 02/23/24 07:34 BMI result Body Mass Index 43.1 <CUCO Sharma Last Filed: 02/23/24 07:56> Const: General: comfortable, no acute distress and alert <CUCO Sharma Last Filed: 02/23/24 07:56> Orientation/consciousness: patient oriented x3 <CUCO Sharma Last Filed: 02/23/24 07:56> Resp: Effort & Inspection: normal respiratory effort <CUCO Sharma Last Filed: 02/23/24 07:56> GI: Inspection: No distended <CUCO Sharma Last Filed: 02/23/24 07:56> Palpation (GI): Soft to palpation, Tenderness to palpation present (GI) in the RUQ and Graham's sign positive and no guarding <Angie Calderón PA-C - Last Filed: 02/23/24 07:56> Percussion: Yes normal to percussion <CUCO Sharma Last Filed: 02/23/24 07:56> Skin: General skin exam: no rashes or lesions noted and no jaundice <CUCO Sharma Last Filed: 02/23/24 07:56> Neuro: General: patient oriented x3 <CUCO Sharma Last Filed: 02/23/24 07:56> Objective Data Active Medications Acetaminophen (Acetaminophen 325 Mg Tablet) 650 mg PO Q6H PRN PRN Reason: Pain, Mild (Pain Scale 1-3) Docusate Sodium (Docusate Sodium 100 Mg Capsule) 100 mg PO BID [facility] Last Admin: 02/23/24 07:26 Dose: Not Given Documented By: MANISH Non-Admin Reason: Patient Refused Hydromorphone HCl (Hydromorphone Hcl 1 Mg/Ml Syringe) 0.5 mg IVPUSH Q4H PRN; Protocol PRN Reason: Pain, Severe (Pain Scale 7-10) Last Admin: 02/22/24 17:13 Dose: 0.5 mg Documented By: ELIE Piperacillin Sod/Tazobactam (Sod 3.375 gm/ Sodium Chloride) 50 mls @ 100 mls/hr IV Q6H [facility] Last Infusion: 02/23/24 06:21 Dose: Infused Documented By: SHRUTHI Lactated Ringer's (Lr) 1,000 mls @ 80 mls/hr IVCONT .[id number] [facility] Last Admin: 02/23/24 05:50 Dose: Not Given Documented By: SHRUTHI Non-Admin Reason: IV Running Lorazepam (Lorazepam 0.5 Mg Tablet) 0.5 mg PO Q4H PRN PRN Reason: anxiety Last Admin: 02/22/24 22:07 Dose: 0.5 mg Documented By: MATT Melatonin (Melatonin 3 Mg Tablet) 6 mg PO BEDTIME PRN PRN Reason: Insomnia Ondansetron HCl (Ondansetron Hcl 4 Mg/2 Ml Vial) 4 mg IVPUSH Q8H PRN PRN Reason: Nausea and Vomiting Last Admin: 02/22/24 18:31 Dose: 4 mg Documented By: ELIE Oxycodone HCl (Oxycodone Hcl Immed Release 5 Mg Tablet) 5 mg PO Q6H PRN PRN Reason: Pain, Moderate(Pain Scale 4-6) Last Admin: 02/23/24 00:16 Dose: 5 mg Documented By: SHRUTHI Sodium Chloride (0.9 % Sodium Chloride Flush 3 Ml Syringe) 3 ml IVFLUSH QSHIFT [facility] Last Admin: 02/23/24 07:26 Dose: Not Given Documented By: MANISH Non-Admin Reason: IV Running <Angie Calderón PA-C - Last Filed: 02/23/24 07:56> Labs CBC & Chem 7: 02/22/24 03:11 02/22/24 03:11 <Angie Calderón PA-C - Last Filed: 02/23/24 07:56> Labs: Laboratory Results - last 24 hr 02/22/24 02/22/24 02/23/24 03:11 09:34 06:16 Hold Purple Top SEE NOTE Total Bilirubin 0.3 1.0 Direct Bilirubin 0.1 0.3 AST 15 16 ALT 15 18 Alkaline Phosphatase 74 63 Total Protein 7.7 6.9 Albumin 3.9 3.5 Lipase 14 Urine Color Yellow Urine Appearance Clear Urine pH 8.5 Ur Specific [place] 1.010 Urine Protein Negative Urine Glucose (UA) Negative Urine Ketones Negative Urine Blood Negative Urine Nitrite Negative Ur Leukocyte Esterase Negative Urine Test NEGATIVE <Angie Calderón PA-C - Last Filed: 02/23/24 07:56> Procedures Date of Service Date of Service: 02/23/24 <Angie Calderón PA-C - Last Filed: 02/23/24 07:56> 02/24/24 <Nato Pastor MD - Last Filed: 02/24/24 08:44> Progress Note: A&P Assessment and plan (1) Acute cholecystitis: Status: Acute <Angie Calderón PA-C - Last Filed: 02/23/24 07:56> Assessment and Plan: Admitted yesterday for acute cholecystitis. Scheduled today for lap aubree. On IV zosyn. All questions answered. <Angie Calderón PA-C - Last Filed: 02/23/24 07:56> Time Spent With Patient Time: Total time managing care of this patient today ____ minutes. <Angie Calderón PA-C - Last Filed: 02/23/24 07:56> Quality Stroke Does the patient have a stroke diagnosis?: No <Angie Calderón PA-C - Last Filed: 02/23/24 07:56> VTE Prior VTE?: No <Angie Calderón PA-C - Last Filed: 02/23/24 07:56> VTE Risk Level:: Surgical - moderate <Angie Calderón PA-C - Last Filed: 02/23/24 07:56> VTE Device Contraindication: N/A - Device Ordered <Angie Calderón PA-C - Last Filed: 02/23/24 07:56> VTE Drug Contraindication: Treatment Not Indicated <Angie Calderón PA-C - Last Filed: 02/23/24 07:56>
[2024-02-23] MEDS: HYDROmorphone HCl 1 MG/ML SYRINGE 0.5 MG IVPUSH ×3 (08:11→18:00)
[2024-02-23] MEDS: Lactated Ringers 1,000 ML 80 ML IVCONT (11:07)
[2024-02-23] MEDS: LORazepam 0.5 MG TABLET PO ×3 (11:07→22:03)
--- NOTE | 2024-02-23 14:34 | HO.ANESPROP2 ---
[facility]LY [facility], LATER [facility] Active Problems Active Problems: All Active Problems Acute cholecystitis (Acute) Surgical History History of Problems with Anesthesia: No Social History Social History Household Members: Significant Other and Children Housing: Apartment Do you presently have visiting nurse or other home services: No Patient Tobacco Use Status: Never used Tobacco Smoked in Last 30 Days: No Use of substances other than those prescribed or required for medical reasons: Yes Substance Use Type: Marijuana Substance Use Type Other:: last smoked 02/22/24 PM Substance Use Frequency: Occasionally Currently Displaying Signs/Symptoms of Drug Intoxication Withdrawal: No Are you DNR?: No Advance Directives: No Advance Directives Information Provided: No Do you have a plan to hurt others: No Plan Recently lost weight without trying: No Eating poorly because of decreased appetite: No Nutrition Risks: No Nutritional Risk Patient : No : No Poor oral hygiene: No Meds Allergies Allergy/AdvReac Type Severity Reaction Status Date / Time No Known Allergies Allergy Verified 02/22/24 03:05 Active Medications: Current Medications Acetaminophen (Acetaminophen 325 Mg Tablet) 650 mg PO Q6H PRN PRN Reason: Pain, Mild (Pain Scale 1-3) Docusate Sodium (Docusate Sodium 100 Mg Capsule) 100 mg PO BID [facility] Last Admin: 02/23/24 07:26 Dose: Not Given Hydromorphone HCl (Hydromorphone Hcl 1 Mg/Ml Syringe) 0.5 mg IVPUSH Q4H PRN; Protocol PRN Reason: Pain, Severe (Pain Scale 7-10) Last Admin: 02/23/24 13:27 Dose: 0.5 mg Piperacillin Sod/Tazobactam (Sod 3.375 gm/ Sodium Chloride) 50 mls @ 100 mls/hr IV Q6H [facility] Last Infusion: 02/23/24 11:43 Dose: Infused Lactated Ringer's (Lr) 1,000 mls @ 80 mls/hr IVCONT .[id number] [facility] Last Infusion: 02/23/24 13:33 Dose: 0 mls/hr Lorazepam (Lorazepam 0.5 Mg Tablet) 0.5 mg PO Q4H PRN PRN Reason: anxiety Last Admin: 02/23/24 11:07 Dose: 0.5 mg Melatonin (Melatonin 3 Mg Tablet) 6 mg PO BEDTIME PRN PRN Reason: Insomnia Ondansetron HCl (Ondansetron Hcl 4 Mg/2 Ml Vial) 4 mg IVPUSH Q8H PRN PRN Reason: Nausea and Vomiting Last Admin: 02/22/24 18:31 Dose: 4 mg Oxycodone HCl (Oxycodone Hcl Immed Release 5 Mg Tablet) 5 mg PO Q6H PRN PRN Reason: Pain, Moderate(Pain Scale 4-6) Last Admin: 02/23/24 00:16 Dose: 5 mg Sodium Chloride (0.9 % Sodium Chloride Flush 3 Ml Syringe) 3 ml IVFLUSH QSHIFT [facility] Last Admin: 02/23/24 07:26 Dose: Not Given Home Medications ?Medication ?Instructions ?Recorded ?Confirmed ?Last Taken ?Type acetaminophen 325 mg tablet 325 mg PO QID PRN pain or fever 02/22/24 02/22/24 Unknown History (Tylenol) Exam Height,Weight and Vital Signs: Height 4 ft 11 in Weight 96.7 kg 8 Last Vital Signs Temp 98.4 F 02/23/24 14:12 Pulse 85 02/23/24 14:12 Resp 20 02/23/24 14:12 BP 117/51 L 02/23/24 14:12 Pulse Ox 98 02/23/24 14:12 O2 Del Method Room Air 02/23/24 14:12 Pertinent Lab Results Pertinent Lab Results: Laboratory Tests 02/22/24 02/22/24 02/23/24 03:11 09:34 06:16 WBC 8.0 RBC 4.69 Hgb 13.0 Hct 40.0 MCV 85.3 MCH 27.7 MCHC 32.5 RDW 13.5 Plt Count 242 MPV 12.0 Immature Gran % (Auto) 0.2 Neut % (Auto) 41.4 L Lymph % (Auto) 46.6 H Power % (Auto) 7.0 Eos % (Auto) 4.4 H Baso % (Auto) 0.4 Lymph # (Auto) 3.8 Power # (Auto) 0.6 Eos # (Auto) 0.4 Baso # (Auto) 0.0 Abs Immat Gran (auto) 0.02 Absolute Neuts (auto) 3.3 Absolute Nucleated RBC 0.000 Nucleated RBC % (auto) 0.0 Hold Purple Top SEE NOTE Sodium 141 Potassium 4.2 Chloride 106 Carbon Dioxide 24 Anion Gap 15 BUN 13 Creatinine 0.69 Estim Creat Clear Calc 123.8 Estimated GFR > 60 Random Glucose 114 Calcium 10.0 Total Bilirubin 0.3 1.0 Direct Bilirubin 0.1 0.3 AST 15 16 ALT 15 18 Alkaline Phosphatase 74 63 Total Protein 7.7 6.9 Albumin 3.9 3.5 Lipase 14 Urine Color Yellow Urine Appearance Clear Urine pH 8.5 Ur Specific [place] 1.010 Urine Protein Negative Urine Glucose (UA) Negative Urine Ketones Negative Urine Blood Negative Urine Nitrite Negative Ur Leukocyte Esterase Negative Urine Test NEGATIVE Blood Type Antibody Screen 02/23/24 08:09 WBC RBC Hgb Hct MCV MCH MCHC RDW Plt Count MPV Immature Gran % (Auto) Neut % (Auto) Lymph % (Auto) Power % (Auto) Eos % (Auto) Baso % (Auto) Lymph # (Auto) Power # (Auto) Eos # (Auto) Baso # (Auto) Abs Immat Gran (auto) Absolute Neuts (auto) Absolute Nucleated RBC Nucleated RBC % (auto) Hold Purple Top Sodium Potassium Chloride Carbon Dioxide Anion Gap BUN Creatinine Estim Creat Clear Calc Estimated GFR Random Glucose Calcium Total Bilirubin Direct Bilirubin AST ALT Alkaline Phosphatase Total Protein Albumin Lipase Urine Color Urine Appearance Urine pH Ur Specific [place] Urine Protein Urine Glucose (UA) Urine Ketones Urine Blood Urine Nitrite Ur Leukocyte Esterase Urine Test Blood Type O Positive Antibody Screen NEGATIVE Airway Mallampati Class: II TM Dist: >3cm Neck ROM: Full Loose/Missing/Broken Teeth: No Heart: RRR Lungs: CTA Assessment and Plan Assessment Anesthesia Assessment: Anesthesia Plan Discussed and Chart Reviewed Final Anesthetic Review History of Problems with Anesthesia: No NPO: Yes ASA Class: II Final Preanesthetic Review: Meds/Allgs Chart Reviewed, Consent Obtained/Reviewed and Anes Risks/Benef Reviewed Patient Risk: Low Procedure Risk: Intermediate Anesthetic Plan Anesthetic Plan: GA Disposition: Standard PACU
--- NOTE | 2024-02-23 16:07 | W.PM.OPN ---
Operative Note Operative Note Date of Service: 02/23/24 Narrative: Preop diagnosis: Acute calculous cholecystitis Postop diagnosis: The same Procedure: Laparoscopic cholecystectomy Surgeon: Nato Pastor MD intellectual property legal assistant: PEMA Calderón The patient is a 28-year-old female, admitted with right upper quadrant pain and tenderness with an ultrasound suggestive of acute cholecystitis. She understood the technique of the planned procedure. She was aware of the risks, benefits, and alternatives. She was brought to the operating room. She was placed supine under general anesthesia via endotracheal tube. The abdomen was prepped and draped in the usual sterile fashion. A surgical time-out was done. The patient received Cefotan 2 g IV preoperatively. I made a short incision on the supraumbilical margin using a blade 15. This was carried down through the full-thickness of the skin and subcutaneous fat. It was noted the patient was morbidly obese and had a very thick subcutaneous fat that we had to go through until we reached the fascia. The fascia incised. The peritoneum was entered. Through this incision Bol[place] port was introduced. Pneumoperitoneum was introduced to a pressure of 15 mm Hg. From here on the rest of the procedure was done under vision with the 10 mm plan laparoscope. With laparoscopic visualization, I inserted a 5/12 minimal port in the epigastric area below the subcostal margin. Two 5 mm ports introduced below the subcostal margin along the anterior axillary line and the midclavicular line. Graspers were placed through these working ports. The patient was placed in head up and [id number] position. Examination of the subhepatic space revealed gallbladder to be erythematous consistent and distended with the acute cholecystitis. I was able to visualize the fundus and I was able to apply a grasper on this. This was used to retract the gallbladder cephalad. By doing so was able to see the distal bladder. I did do some careful dissection with the [place] dissector, as well as the tip of the suction loan analyst to release some thin adhesions surrounding the neck. By doing so was able to visualize what appeared to be the cystic duct. We carefully dissected the cystic duct circumferentially using the [place] dissector until was able to confirm its confluence with the neck of the gallbladder. By doing so was I able to achieve a critical view of the hepatocystic triangle. There was note of the lymph node in the area along with what appeared to be a cystic artery. With confirmation of the confluence of the cystic duct and the neck, I proceeded to then apply clips cystic duct with 2 clips being applied distally. The cystic duct was transected between clips with Endo scissors. The cystic artery was noted to have some oozing at this time so I carefully dissected this and applied clips as well. I transected the cystic artery between clips with Endo scissors. There were 2 clips in the distal cystic artery With traction on the gallbladder away from the liver bed, I proceeded to then divide through the hilum using the electrocautery spatula until I reach the interface with the gallbladder wall and the liver bed. There was note of indurated and inflamed fatty areolar tissue in the area. I incised the peritoneum of the gallbladder the electrocautery and proceeded to define a plane of dissection between the gallbladder wall and the liver bed with a combination of blunt dissection with the tip of the spatula and electrocautery. I the gallbladder off of the liver bed along this well-defined plane until the entire gallbladder was completely and this was retrieved through an endobag through the umbilical incision. I reinserted all ports and re-insufflated. I examined the subhepatic space. There was note of good hemostasis. I irrigated and suctioned out the irrigant fluid. I observed all 4 quadrants. There was no evidence of any bowel injury or any bile leak I observed the subhepatic space and once hemostasis was confirmed, I desufflated through the port sites. I then removed all ports under vision with the laparoscope. The umbilical port was removed last . The fascia of the umbilical incision was closed with a [id number] Polysorb 0 stitch. Skin closure was achieved on all incisions using Polysorb 4-0 subcuticular running sutures. Steri-Strips and dressings were applied All incisions were infiltrated with Marcaine 0.5% for postop analgesia and the procedure was completed The patient tolerated the procedure well. There were no immediate complications. Initial and final counts of sponges and instruments were correct. Estimated blood loss was about 50 cc The patient was extubated without difficulty and transferred to the recovery room with stable vital signs.
[2024-02-23] MEDS: fentaNYL citrate/PF 100 MCG/2 ML VIAL 25 MCG IVPUSH ×4 (16:24→16:39)
--- NOTE | 2024-02-23 16:56 | PM.EVENT ---
Event Note Date of Service: 02/23/24 Event Note: seen postop underwent lap aubree earlier explained procedure to pt diet ordered stable VS pain mgt signficant other Nicolle updated by phone Time Spent With Patient Time: Total time managing care of this patient today ____ minutes.
[2024-02-23] MEDS: Docusate Sodium 100 MG CAPSULE PO (19:33)
[2024-02-23] MEDS: Acetaminophen 325 MG TABLET 650 MG PO (19:34)
[2024-02-23] MEDS: Morphine Sulfate 4 MG/ML CARTRIDGE 5 MG IVPUSH (21:06)
[2024-02-23] MEDS: Throat Lozenge, Medicated LOZENGE 1 LOZENGE MUCOUS MEM (21:06)
[2024-02-23] MEDS: Melatonin 3 MG TABLET 6 MG PO (21:07)
[2024-02-23] MEDS: Acetaminophen 1,000 MG/100 ML PIGGYBACK 400 MG IV (21:08)
[2024-02-24] MEDS: Piperacillin Sodium/Tazobactam 3.375 GM in 0.9 % Sodium Chloride 50 ML IV ×2 (00:01→06:08)
[2024-02-24] MEDS: Acetaminophen 1,000 MG/100 ML PIGGYBACK 400 MG IV ×2 (03:23→08:21)
[2024-02-24 03:47] VITALS: BP 132/69; PULSE 81; RESP 16; TEMP 36.1; O2SAT 99
[2024-02-24] MEDS: LORazepam 0.5 MG TABLET PO (04:10)
[2024-02-24] MEDS: Morphine Sulfate 4 MG/ML CARTRIDGE 5 MG IVPUSH (04:10)
[2024-02-24] MEDS: Lactated Ringers 1,000 ML 80 ML IVCONT (06:11)
[2024-02-24 07:31] VITALS: BP 138/80; PULSE 90; RESP 16; TEMP 36.7; O2SAT 98
--- NOTE | 2024-02-24 07:37 | P.PNGS_ITS ---
Subjective Subjective Date of Service: 02/24/24 <Angie Calderón PA-C - Last Filed: 02/24/24 07:39> 02/24/24 <Nato Pastor MD - Last Filed: 02/24/24 08:12> Interval history: C/o severe pain and necessitating IV analgesics but also asking to go home. Tolerated small amount of solid food yesterday. Has not been OOB. < Angie Calderón PA-C - Last Filed: 02/24/24 07:39> Physical Exam 2 Vital Signs: Vital Signs: Last Vital Signs Temp 98.0 F 02/24/24 07:31 Pulse 90 02/24/24 07:31 Resp 16 02/24/24 07:31 BP 138/80 02/24/24 07:31 Pulse Ox 98 02/24/24 07:31 O2 Del Method Room Air 02/24/24 07:31 O2 Flow Rate 2 02/23/24 16:54 BMI result Body Mass Index 43.1 <Angie Calderón PA-C - Last Filed: 02/24/24 07:39> Const: General: comfortable, no acute distress and alert <Angie Calderón PA-C - Last Filed: 02/24/24 07:39> Resp: Effort & Inspection: normal respiratory effort <CUCO Sharma Last Filed: 02/24/24 07:39> GI: Inspection: No distended and Yes incision (dressings c/d/i) <Angie Calderón PA-C - Last Filed: 02/24/24 07:39> Palpation (GI): Soft to palpation, Tenderness to palpation present (GI) (mild incisional) and no guarding <Angie Calderón PA-C - Last Filed: 02/24/24 07:39> Skin: General skin exam: no rashes or lesions noted and no jaundice < CUCO Sharma Last Filed: 02/24/24 07:39> Objective Data Active Medications Benzocaine (Throat Lozenge, Medicated Lozenge) 1 lozenge MUCOUS MEM Q2H PRN PRN Reason: Sore Throat Last Admin: 02/23/24 21:06 Dose: 1 lozenge Documented By: YONATHAN Docusate Sodium (Docusate Sodium 100 Mg Capsule) 100 mg PO BID [facility] Last Admin: 02/23/24 19:33 Dose: 100 mg Documented By: YONATHAN Piperacillin Sod/Tazobactam (Sod 3.375 gm/ Sodium Chloride) 50 mls @ 100 mls/hr IV Q6H [facility] Last Infusion: 02/24/24 06:42 Dose: Infused Documented By: YONATHAN Lactated Ringer's (Lr) 1,000 mls @ 80 mls/hr IVCONT .[id number] [facility] Last Admin: 02/24/24 06:11 Dose: 80 mls/hr Documented By: YONATHAN Acetaminophen (Ofirmev) 1,000 mg in 100 mls @ 400 mls/hr IV Q6H [facility] Last Infusion: 02/24/24 03:40 Dose: Infused Documented By: YONATHAN Lorazepam (Lorazepam 0.5 Mg Tablet) 0.5 mg PO Q4H PRN PRN Reason: anxiety Last Admin: 02/24/24 04:10 Dose: 0.5 mg Documented By: YONATHAN Melatonin (Melatonin 3 Mg Tablet) 6 mg PO BEDTIME PRN PRN Reason: Insomnia Last Admin: 02/23/24 21:07 Dose: 6 mg Documented By: YONATHAN Morphine Sulfate (Morphine Sulfate 4 Mg/Ml Cartridge) 5 mg IVPUSH Q6H PRN; Protocol PRN Reason: Pain, Severe (Pain Scale 7-10) Last Admin: 02/24/24 04:10 Dose: 5 mg Documented By: YONATHAN Ondansetron HCl (Ondansetron Hcl 4 Mg/2 Ml Vial) 4 mg IVPUSH Q8H PRN PRN Reason: Nausea and Vomiting Last Admin: 02/22/24 18:31 Dose: 4 mg Documented By: ELIE Oxycodone HCl (Oxycodone Hcl Immed Release 5 Mg Tablet) 5 mg PO Q6H PRN PRN Reason: Pain, Moderate(Pain Scale 4-6) Last Admin: 02/23/24 19:35 Dose: 5 mg Documented By: YONATHAN Sodium Chloride (0.9 % Sodium Chloride Flush 3 Ml Syringe) 3 ml IVFLUSH QSHIFT [facility] Last Admin: 02/24/24 07:31 Dose: Not Given Documented By: TASHA Non-Admin Reason: IV Running <Angie Calderón PA-C - Last Filed: 02/24/24 07:39> Labs CBC & Chem 7: 02/22/24 03:11 02/22/24 03:11 <Angie Calderón PA-C - Last Filed: 02/24/24 07:39> Labs: Laboratory Results - last 24 hr 02/23/24 02/23/24 06:16 08:09 Total Bilirubin 1.0 Direct Bilirubin 0.3 AST 16 ALT 18 Alkaline Phosphatase 63 Total Protein 6.9 Albumin 3.5 Blood Type O Positive Antibody Screen NEGATIVE <Angie Calderón PA-C - Last Filed: 02/24/24 07:39> Procedures Date of Service Date of Service: 02/24/24 <Angie Calderón PA-C - Last Filed: 02/24/24 07:39> 02/24/24 <Nato Pastor MD - Last Filed: 02/24/24 08:12> Progress Note: A&P Assessment and plan (1) Acute cholecystitis: Status: Acute <CUCO Sharma Last Filed: 02/24/24 07:39> Assessment and Plan: Status post laparoscopic cholecystectomy Seems to be doing well postop Dressings dry Tolerating diet Discharge instructions reinforced Oral pain meds Will be seen in the office for follow-up Seen and examined independently <Nato Pastor MD - Last Filed: 02/24/24 08:12> (2) S/P laparoscopic cholecystectomy: Status: Acute <Angie Calderón PA-C - Last Filed: 02/24/24 07:39> Assessment and Plan: POD #1 s/p lap aubree. Having difficulty with pain but otherwise doing well. VSS. ABd exam benign with appropriate post op tenderness, dressings c/d/i. Give 1 time dose IV dilaudid then encouraged oxycodone 10mg PO in preparation for dc. Encouraged OOB/ambulation and IS use. Patient comfortable with plan. Will reassess later today for potential dc to home. <Angie Calderón PA-C - Last Filed: 02/24/24 07:39> Time Spent With Patient Time: Total time managing care of this patient today ____ minutes. <Angie Calderón PA-C - Last Filed: 02/24/24 07:39> Quality Stroke Does the patient have a stroke diagnosis?: No <Angie Calderón PA-C - Last Filed: 02/24/24 07:39> VTE Prior VTE?: No <Angie Calderón PA-C - Last Filed: 02/24/24 07:39> VTE Risk Level:: Surgical - moderate <Angie Calderón PA-C - Last Filed: 02/24/24 07:39> VTE Device Contraindication: N/A - Device Ordered <Angie Calderón PA-C - Last Filed: 02/24/24 07:39> VTE Drug Contraindication: Treatment Not Indicated <Angie Calderón PA-C - Last Filed: 02/24/24 07:39>
[2024-02-24] MEDS: HYDROmorphone HCl 0.5 MG/0.5 ML SYRINGE IVPUSH (08:22)
[2024-02-24] MEDS: Docusate Sodium 100 MG CAPSULE PO (08:23)
[2024-02-24] MEDS: Throat Lozenge, Medicated LOZENGE 1 LOZENGE MUCOUS MEM (08:49)
[2024-02-24] MEDS: oxyCODONE HCl Immed Release 5 MG TABLET 10 MG PO (10:18)
--- NOTE | 2024-02-24 11:41 | MHC.CM.PN ---
S/P ervin Croft lives with SO and children. She is independent with all functional mobility. She declined the offer to document a HCP. DP home self care. Patient is discharged today. DP home self care. She has arranged for her SO to provide transport home.
--- NOTE | 2024-02-24 14:23 | HO.POSTANES ---
Post Anesthesia Evaluation Post Anesthesia Evaluation Date of Service: 02/23/24 Vital Signs: Vital Signs Temp Pulse Resp BP Pulse Ox O2 Del Method 02/24/24 07:31 98.0 F 90 16 138/80 98 Room Air 02/24/24 03:47 96.9 F 81 16 132/69 99 Room Air Anesthesia: General Mental Status: Awake Pain Control: Satisfactory Nausea/Vomiting: None Hydration: Adequate Anesthesia-Related Issues: No Anes. Related Issues
--- NOTE | 2024-02-27 14:56 | P.DS_ITS ---
DS: Providers Provider Date of Service: 02/24/24 Date of admission: 02/22/24 14:04 Date of discharge: 02/24/24 Primary care physician: Unknown Physician Attending physician on admission: Nato Pastor Attending physician on discharge: Nato Pastor DS: Diagnosis Discharge Diagnosis (1) Acute cholecystitis: Status: Acute DS: Summary Hospital Course Hospital Course: HPI AT ADMISSION: Johny Lyons is a 28 year old female with PMH significant for preeclampsia in 2019 who presented to the ED with complaints of abdominal pain. She reports the pain is mostly in the epigastric region and started 4 days ago. It is constant in nature and wraps around to her right upper back. It is associated with nausea and vomiting. She denies similar episodes of pain, fever, chills, sick contacts, diarrhea. Work up in the ED included CBC, BMP, LFTs which were WNL. CT scan abd/pelvis and ABD US were performed which showed gallstones, distended gallbladder with mild gallbladder wall thickening and edema and positive sonographic Graham's sign. HOSPITAL COURSE: She was admitted to the surgical service for further treatment of the acute cholecystitis. It was recommended to proceed with laparoscopic cholecystectomy. She agreed. She was added onto the OR schedule for the following day. On 02/23/24, a laparoscopic cholecystectomy was performed by Dr. Pastor without complication. The patient tolerated the procedure well. She had an uncomplicated recovery course. On POD #1 and the day of discharge, she was tolerating a solid diet without nausea or vomiting. She was ambulating. She was comfortable on PO analgesics. She was clinically appearing well, hemodynamically stable and her abdomen was benign with clean/intact dressings. She was discharged to home on 02/24/24. She is to follow up in the office in 2 weeks. Status at Discharge Functional status at discharge: independent ambulation Overall status at discharge: patient is progressing back to baseline Time Attestation Discharge Coordination Time (in mins): 30 Quality: Safe Use of Opioids Does Pt have an Active Cancer Diagnosis on the Problem List?: No Quality: Stroke Does the patient have a stroke diagnosis?: No Physical Exam Vital Signs: Vital Signs: Last Vital Signs Temp 98.0 F 02/24/24 07:31 Pulse 90 02/24/24 07:31 Resp 16 02/24/24 07:31 BP 138/80 02/24/24 07:31 Pulse Ox 98 02/24/24 07:31 O2 Del Method Room Air 02/24/24 07:31 O2 Flow Rate 2 02/23/24 16:54 BMI result Body Mass Index 43.1 Const: General: comfortable, no acute distress and alert Orientation/consc iousness: patient oriented x3 Resp: Effort & Inspection: normal respiratory effort GI: Inspection: No distended and Yes incision (dressings c/d/i) Palpation (GI): Soft to palpation and Tenderness to palpation present (GI) (mild incisional) Skin: General skin exam: no rashes or lesions noted Neuro: General: patient oriented x3 and moves all extremities DS: Data Data Completed and Pending Pending studies at discharge: Pending at discharge 02/23/24 16:14 Surgical [PTH] Routine Discharge Plan Discharge Anticipated Discharge Date/Time: 02/24/24 10:42 Patient Disposition: Home, Self-Care Discharge Diagnosis: acute cholecystitis s/p laparoscopic cholecystectomy Referrals: Nato Pastor MD [Physician] - 2 Weeks Physician,Dinora Clayton [Primary Care Provider] - 1 Week Discharge Medications: New docusate sodium [Colace] 100 mg capsule 100 mg PO BID PRN (Reason: constipation) Qty: 30 0RF oxycodone 5 mg tablet 5 mg PO Q4H PRN (Reason: pain (scale score 7-10)) Qty: 24 0RF Rx Instructions: Partial Fill upon patient request. ibuprofen 600 mg tablet 600 mg PO Q8H PRN (Reason: pain) Qty: 30 0RF Continued acetaminophen [Tylenol] 325 mg Tablet 325 mg PO QID PRN (Reason: pain or fever) Discharge Orders: Discharge Order (Routine); Ordered 02/24/24 Ordered By: Angie Calderón Diet: Low fat, low cholesterol Activity on Discharge: No heavy lifting Stand Alone Forms: Patient Portal Discharge page, Work/School Release Print Language: [place] Citizen Activity Restrictions/Additional Instructions: If the incision area is tender, you may apply an ice pack for short intervals (No more than 20 minutes on, followed by at least 20 minutes off). Do not apply heat. Do not use creams, lotions, or topical antibiotics. These can cause infection or allergic reaction. Ok to shower 24 hours after your surgery. Remove bandaids in 2 days and replace. You have steri strips (small white cloth strips) covering your incision- these will fall off ~1 week. Follow up in office with Dr. Pastor in 2 weeks. ([phone]) No heavy lifting (>10-20lbs) or strenuous activity! Call Your Doctor If: -Your temperature exceeds 101.5? F -You experience excessive pain or swelling -You have an unexpected reaction to medication -You have excessive bleeding -You experience continued vomiting/nausea -Your incision begins to separate -Your incision shows signs of infection such as increased redness, swelling, excessive pain, drainage (light blood or clear fluid is normal) or heat Care Plan Goals: Return to baseline health and resume normal activities following recovery period. Health Concerns: acute cholecystitis Plan of Treatment: s/p laparoscopic cholecystectomy F/u in office in 2 weeks pain control Assessment: Doing well post op Discharge Date/Time: 02/24/24 11:10
== END 2024-02-24 11:10 | disposition home or self-care (01) | DRG 263 ==
LOC: HO.ED 13:32 → HO.EDOVER 14:18 → HO.S3 20:02
PROVIDERS: Physician Assistant; Surgery; Admitting Provider Physician Assistant Surgical; Emergency Provider Emergency Medicine; Visit Provider Physician Assistant Surgical
PROC: 0FT44ZZ Resection of Gallbladder, Percutaneous Endoscopic Approach (ICD-10-PCS; CPT 47562; principal; 2024-02-23 13:00)
DX: K80.00 Calculus of gallbladder with acute cholecystitis without obstruction (principal); Z79.899 Other long term (current) drug therapy
CPT/HCPCS: 36415; 74177; 76705; 80048; 80076; 81003; 81025; 83690; 85025; 86850; 86900; 86901; 88304; 99221; 99285; J0131; J1170; J2250; J2270; J2405; J2543; J2704; J2795; J3010; J7120; Q9967

== ENCOUNTER → 2024-02-22 14:04 | Outpatient (BNV) | payer OTHER, SELFPAY | PROVIDERS: Admitting Provider Physician Assistant Surgical; Emergency Provider Emergency Medicine; Visit Provider Surgery | DX: K81.0 Acute cholecystitis (principal) | CPT/HCPCS: 47562; 99024; 99222; 99499 ==

== ENCOUNTER 2024-03-14 09:03 | Outpatient (AMB) | payer OTHER, SELFPAY ==
--- NOTE | 2024-03-14 09:23 | MHC.OFFVIS ---
Intake Visit Reasons: s/p lap aubree Intake Note: This patient presents for a post-op assessment status post laparoscopic cholecystectomy. Patient c/o; reports no complaints. Help Desk Consultant Required: No Accompanied by: Other Relationship Allergies No Known Allergies Allergy (Verified 03/14/24 09:49) HPI HPI s/p lap aubree: Details: [age] year old female here for follow-up postop. She underwent laparoscopic cholecystectomy for acute cholecystitis last 02/22/2023. She tolerated procedure well. She currently denies significant complaints. She is good GI functions. [facility] Surgical History Hx laparoscopic cholecystectomy (~02/23/24) Social History Household Members: Significant Other and Children Housing: Apartment Do you presently have visiting nurse or other home services: No Patient Tobacco Use Status: Never used Tobacco Substance Use Type: Marijuana service: No Review of Systems Const Denies chills and Denies fever(s) Card Denies chest pain, Denies dyspnea and Denies dyspnea on exertion Resp Denies cough, Denies dyspnea and Denies dyspnea on exertion GI Denies hematochezia and Denies change in bowel habits Denies hematuria Musc Denies back pain and Denies limited range of motion Neuro Denies focal weakness and Denies convulsions Psych Denies depression and Denies mood swings Physical Exam Const General: comfortable and no acute distress Eyes Other: Sclerae anicteric GI Other: All incisions clean and dry Palpation (GI): Soft to palpation, not firm and nontender Assessment & Plan Assessment & Plan (1) S/P laparoscopic cholecystectomy: Code(s): Z90.49 - Acquired absence of other specified parts of digestive tract Category: Surgical Plan: She is doing very well. All incisions are clean and healing well. I advised her to avoid lifting anything more than 20 lb for about 2 weeks. She can follow up on a p.r.n. basis. Coding Level of Care Code Global (04097) Diagnoses S/P laparoscopic cholecystectomy Z90.49
== END 2024-03-14 10:14 | disposition home or self-care (01) ==
PROVIDERS: Visit Provider Surgery
DX: Z90.49 Acquired absence of other specified parts of digestive tract (principal)
CPT/HCPCS: 99024

== ENCOUNTER → 2024-03-14 09:03 | Outpatient (BNVA) | payer OTHER, SELFPAY | PROVIDERS: Visit Provider Surgery | DX: Z90.49 Acquired absence of other specified parts of digestive tract (principal) | CPT/HCPCS: 99212 ==